=== PATIENT | female | born 1950 ===

== ENCOUNTER 2019-07-25 23:53 | Emergency (ER) | payer MEDICARE, SELFPAY ==
[2019-07-25 23:58] VITALS: BP 160/77; PULSE 82; RESP 18; TEMP 36.8; O2SAT 98; BMI 34.9
[2019-07-26 00:07] VITALS: PULSE 78
--- NOTE | 2019-07-26 00:07 | W.ED.EXTPRO ---
HPI - Extremity Problem General: Chief complaint: Extremity Injury, Lower Stated complaint: KNEE PAIN Time Seen by Provider: 07/25/19 23:59 Source: patient and EMS Mode of arrival: EMS Limitations: no limitations History of Present Illness: HPI Narrative: 69-year-old female who had knee surgery yesterday morning on her right knee to have a knee replacement. Patient was prescribed oxycodone which she has not filled. She states that she felt a clicking in her knee tonight and has had severe pain. She states she has had no pain meds at home to take. She denies any fevers. She denies any worsening improving factors. MD Complaint: extremity pain Onset (ago): hour(s) Pain Consistency: constant Location: right Severity scale (1-10): 6 Quality: sharp Associated symptoms: Deny chest pain, fever(s) or rash Review of Systems Const: Denies: fever, chills, body aches or change in appetite Eyes: Denies: blurry vision or eye discomfort ENMT: Denies: throat pain or dental pain Card: Denies: chest pain Resp: Denies: shortness of breath GI: Denies: abdominal pain, nausea, vomiting or diarrhea : Denies: painful urination Musc: Reports: joint pain Skin/Breast: Denies: rash Neuro: Denies: headache Psych: Denies: depression Blaze/Lymph: Denies: easy bruising All/Imm: Denies: hives PFSH ED PFSH: Social History Smoking and tobacco status: never smoked Physical Exam Const: COMMON NORMALS: no apparent distress, oriented x3 and healthy appearing HENMT: COMMON NORMALS: normocephalic and head/scalp atraumatic HEAD & SCALP: normocephalic and atraumatic Eye: COMMON NORMALS: PERRL and EOMs intact bilaterally PUPIL: Yes PERRL Neck/C-Spine: COMMON NORMALS: full ROM and supple Chest: COMMONS NORMALS: inspection of chest normal and palpation of chest normal Resp: COMMON NORMALS: normal respiratory effort, no retractions, no use of accessory muscles and clear to auscultation bilaterally AUSCULTATION: clear to auscultation bilaterally Cardio: COMMON NORMALS: regular rate, regular rhythm and no murmurs RATE: regular rate RHYTHM: regular rhythm GI: COMMON NORMALS: normal to inspection, nondistended, normoactive bowel sounds, soft to palpation, non-tender and no masses PALPATION: Yes soft Extremity: COMMON NORMALS: normal to inspection and full ROM NARRATIVE EXTREMITY EXAM: Incision is clean dry and intact. Dressings were taken down. Patient has no redness or drainage. Was able to move knee but she does have pain at this time. Distal pulses intact. Neuro: COMMON NORMALS: oriented x3, moves all extremities and no focal motor deficits Psych: COMMON NORMALS: mental status grossly normal, thought process normal and cooperative THOUGHT PROCESS: normal thought process Skin: COMMON NORMALS: no rashes or lesions noted and no wounds GENERAL SKIN EXAM: no rashes or lesions noted Course Vital Signs: Vital signs: Vital Signs Temperature 98.2 F 07/25/19 23:58 Pulse Rate 82 07/25/19 23:58 Respiratory Rate 18 07/25/19 23:58 Blood Pressure 160/77 07/25/19 23:58 Pulse Oximetry 98 07/25/19 23:58 Coding Level of Care Code ED [employer] T[employer] for Aristeo Pollock
[2019-07-26 00:11] VITALS: BP 152/79; PULSE 83; RESP 17; O2SAT 95
== END 2019-07-26 01:50 | disposition left against medical advice (07) ==
PROVIDERS: Emergency Provider Nurse Practitioner Family; PCP Family Medicine
DX: Z53.21 Procedure and treatment not carried out due to patient leaving prior to being seen by health care provider (principal)
CPT/HCPCS: 96372; 99281; J2270